=== PATIENT | male | born 1980 | race Caucasian/White ===

== ENCOUNTER 2017-10-21 20:00 | Emergency (ER) | payer OTHER ==
[2017-10-21 21:16] LABS: ALB/GLOB RATIO 1.6 (1.1-1.8); ALBUMIN 4.9 g/dL (3.0-4.8); ALT/SGPT 29 U/L (7-56); AST/SGOT 30 U/L (17-59); BLOOD UREA NITROGEN 17 mg/dL (7-21); CALCIUM 9.4 mg/dL (8.4-10.5); GFR AFRICAN-AMERICAN > 60; GFR NON-AFRICAN AMERICAN > 60; HEMOGLOBIN 14.5 g/dL (14.0-18.0); MEAN CELL VOLUME 83.8 fl (80.0-105.0); MEAN CORPUSCULAR HGB CONC 34.6 g/dl (31.0-37.0); MEAN PLATELET VOLUME 10.6 fl (7.0-11.0); RED CELL DISTRIBUTION WIDTH 13.3 % (11.5-14.5); WHITE BLOOD COUNT 8.1 10^3/ul (4.5-11.0)
--- NOTE | 2017-10-21 21:17 | ED PDOC ---
Arrival/HPI - General Chief Complaint: Palpitations Time Seen by Provider: 10/21/17 20:03 Historian: Patient - History of Present Illness Narrative History of Present Illness (Text): 10/21/17 21:21 A 36 year old male, with no significant past medical history, presents to the emergency department complaining of intermittent heart palpations, chest tightness, and tingling to hands. Patient reports went to clinic in [facility] for full evaluation (EKG, Labs, etc.) which were normal. Patient is here requesting for reevaluation. Also, he mentions feeling anxious due to father's recent heart attack (father's age is 64). Patient denies any shortness of breath , substance abuse, or any other complaints. No PMD Past Medical History - Provider Review Nursing Documentation Reviewed: Yes - Infectious Disease Hx of Infectious Diseases: None - Psychiatric Hx Substance Use: No - Surgical History Other/Comment: lasix surgery - Anesthesia Hx Anesthesia: No Family/Social History - Physician Review Nursing Documentation Reviewed: Yes Family/Social History: No Known Family HX Smoking Status: Never Smoked Hx Alcohol Use: No Hx Substance Use: No Allergies/Home Meds Allergies/Adverse Reactions: Allergies No Known Allergies Allergy (Verified 10/21/17 20:22) Review of Systems - Physician Review All systems were reviewed & negative as marked: Yes - Review of Systems Respiratory: absent: SOB Cardiovascular: Palpitations, Other (chest tightness) Physical Exam Vital Signs Reviewed: Yes Vital Signs Temp Pulse Resp BP Pulse Ox 10/21/17 20:17 98.8 F 78 18 150/97 H 100 Temperature: Afebrile Blood Pressure: Normal Pulse: Regular Respiratory Rate: Normal Appearance: Positive for: Well-Appearing, Non-Toxic, Comfortable Pain Distress: None Mental Status: Positive for: Alert and Oriented X 3 - Systems Exam Head: Present: Atraumatic, Normocephalic Pupils: Present: PERRL Extroacular Muscles: Present: EOMI Conjunctiva: Present: Normal Mouth: Present: Moist Mucous Membranes Neck: Present: Normal Range of Motion Respiratory/Chest: Present: Clear to Auscultation, Good Air Exchange. No: Respiratory Distress, Accessory Muscle Use Cardiovascular: Present: Regular Rate and Rhythm, Normal S1, S2. No: Murmurs Abdomen: No: Tenderness, Distention, Peritoneal Signs Back: Present: Normal Inspection Upper Extremity: Present: Normal Inspection. No: Cyanosis, Edema Lower Extremity: Present: Normal Inspection. No: Edema Neurological: Present: GCS=15, CN II-XII Intact, Speech Normal Skin: Present: Warm, Dry, Normal Color. No: Rashes Psychiatric: Present: Alert, Oriented x 3, Normal Insight, Normal Concentration Medical Decision Making ED Course and Treatment: 10/21/17 21:21 Impression: 36 year old male with intermittent heart palpitations and chest tightness. Plan: -- EKG -- Chest X-ray -- Labs -- Xanax -- Reassess and disposition Progress Notes: EKG: Ordered, reviewed, and independently interpreted the EKG. Rate : 75 BPM Rhythm : NSR Interpretation : No ST-segment elevations or depressions, no T-wave inversions, normal intervals. Comparison : No previous EKG for comparison. - Lab Interpretations Lab Results: 10/21/17 20:59 10/21/17 20:59 Lab Results 10/21/17 20:59: WBC 8.1, RBC 5.00, Hgb 14.5, Hct 41.9 L, MCV 83.8, MCH 29.0, MCHC 34.6, RDW 13.3, Plt Count 230, MPV 10.6 10/21/17 20:59: Sodium 140, Potassium 4.6, Chloride 103, Carbon Dioxide 24, Anion Gap 18, BUN 17, Creatinine 0.8, Est GFR ( Amer) > 60, Est GFR (Non- Af Amer) > 60, Random Glucose 96, Calcium 9.4, Total Bilirubin 0.6, AST 30, ALT 29, Alkaline Phosphatase 27 L, Lactate Dehydrogenase 438, Total Creatine Kinase 91, Troponin I < 0.01, Total Protein 7.8, Albumin 4.9 H, Globulin 3.0, Albumin/ Globulin Ratio 1.6 10/21/17 20:59: PT 13.9 H, INR 1.14 H, APTT 26.7 - RAD Interpretation Narrative RAD Interpretations (Text): 10/21/17 22:46 Chest X-Ray- No acute process Radiology Orders: 10/21/17 20:34 CHEST PORTABLE [RAD] Stat Industrial Cleaning Technician: ED Physician - Medication Orders Current Medication Orders: Discontinued Medications Alprazolam (Xanax) 0.25 mg PO ONCE ONE Stop: 10/21/17 20:34 Last Admin: 10/21/17 21:04 Dose: 0.25 mg - Scribe Statement The provider has reviewed the documentation as recorded by the Trina Yarbrough Provider Trina Attestation: All medical record entries made by the Alanibcindi were at my direction and personally dictated by me. I have reviewed the chart and agree that the record accurately reflects my personal performance of the history, physical exam, medical decision making, and the department course for this patient. I have also personally directed, reviewed, and agree with the discharge instructions and disposition. Disposition/Present on Arrival - Present on Arrival Any Indicators Present on Arrival: No History of DVT/PE: No History of Uncontrolled Diabetes: No Urinary Catheter: No History of Decub. Ulcer: No History Surgical Site Infection Following: None - Disposition Have Diagnosis and Disposition been Completed?: Yes Diagnosis: Anxiety Disposition: HOME/ ROUTINE Disposition Time: 22:52 Patient Plan: Discharge Patient Problems: Current Active Problems Problem Status Onset Anxiety Acute Condition: STABLE Discharge Instructions (ExitCare): Anxiety, Adult (DC) Additional Instructions: Get proper rest/maintain good sleeping habits/avoid caffeinated beverages/take meds as prescribed/follow up with your doctor this week Prescriptions: hydrOXYzine HCl [Atarax] 25 mg PO Q8H PRN #12 tab PRN Reason: Anxiety Referrals: Siva Andrew MD [Staff Provider] - Follow up with primary Forms: [employer] (B[place]i)
[2017-10-21 21:25] LABS: INR 1.14 (0.93-1.08); PARTIAL THROMBOPLASTIN TIME 26.7 Seconds (25.1-36.5); PROTHROMBIN TIME 13.9 SECONDS (9.4-12.5)
[2017-10-21 21:28] LABS: TROPONIN I < 0.01 ng/mL
[2017-10-21 23:14] VITALS: BP 148/72; PULSE 68; RESP 17; TEMP 98; O2SAT 98
--- NOTE | 2017-10-22 08:28 | RAD ---
Date of service: 10/21/2017 HISTORY: palpitations COMPARISON: No prior. FINDINGS: LUNGS: The lungs are well inflated and clear. PLEURA: No significant pleural effusion identified, no pneumothorax apparent. CARDIOVASCULAR: Normal. OSSEOUS STRUCTURES: No significant abnormalities. VISUALIZED UPPER ABDOMEN: Normal. OTHER FINDINGS: None. IMPRESSION: No active pulmonary disease.
--- NOTE | 2017-10-22 12:16 | CARD ---
APPROVED REPORT Date of service: 10/21/2017 EKG Measurement Heart [id number] <Conclusion> Normal sinus rhythm Normal ECG
== END 2017-10-21 23:14 | disposition home or self-care (01) ==
LOC: EDBD → ED 20:00
DX: F41.9 Anxiety disorder, unspecified (principal)